=== PATIENT | male | born 1985 | race Hispanic/Latino ===

== ENCOUNTER 2017-10-04 15:25 | Emergency (ER) | payer SELFPAY ==
[2017-10-04] MEDS ORDERED: IBUPROFEN 400 MG TABLET ONE (15:36)
[2017-10-04] MEDS ORDERED: IBUPROFEN 200 MG TAB ONE (15:37)
== END 2017-10-04 16:24 | disposition home or self-care (01) ==
LOC: EDH 15:25
DX: S62.307A Unspecified fracture of fifth metacarpal bone, left hand, initial encounter for closed fracture (principal); Z72.0 Tobacco use; Y04.0XXA Assault by unarmed brawl or fight, initial encounter; Y93.89 Activity, other specified; Y92.89 Other specified places as the place of occurrence of the external cause; Y99.8 Other external cause status
CPT/HCPCS: 29125; 73130